=== PATIENT | male | born 1950 | race Caucasian/White ===

== ENCOUNTER 2021-12-30 09:03 | Observation (INO) | payer OTHER ==
[~2021-12-30] VITALS: Ht 185.4 cm; Wt 83.0 kg
[2021-12-30 10:19] LABS: RED BLOOD COUNT 4.79 M/UL (4.20-5.50)
[2021-12-30 11:11] LABS: BUN/CREATININE RATIO 16 (0-10)
[2021-12-30] MEDS ORDERED: TEMAZEPAM30 MG PO (13:12)
[2021-12-30] MEDS ORDERED: BUDESONIDE0.5 MG/2 M INH (13:12)
[2021-12-30] MEDS ORDERED: LORAZEPAM0.5 MG PO (13:12)
[2021-12-30] MEDS ORDERED: NEURONTIN100 MG PO (13:13)
[2021-12-30] MEDS ORDERED: BETHANECHOL CHL25 MG PO (13:13)
[2021-12-30] MEDS ORDERED: SOTALOL80 MG PO (13:14)
[2021-12-30] MEDS ORDERED: ELIQUIS5 MG PO (13:14)
[2021-12-30] MEDS ORDERED: FLOMAX 0.4 MG0.4 MG PO (13:14)
[2021-12-30] MEDS ORDERED: REPATHA SY140 MG/1 M SQ (13:14)
[2021-12-30] MEDS ORDERED: OXYCODONE HCL10 MG PO (13:15)
[2021-12-30] MEDS ORDERED: IPRAT-ALBUT 0.5-3 ML INH (13:15)
[2021-12-30] MEDS ORDERED: MULTIVITAMIN1 EACH PO (13:16)
[2021-12-30] MEDS ORDERED: FOLIC ACID0.4 MG PO (13:16)
[2021-12-30] MEDS ORDERED: IRON325 M1 PO (13:16)
[2021-12-30] MEDS ORDERED: KEYTRUDA100 MG/4 M IV (13:16)
[2021-12-30] MEDS ORDERED: ZINC50 M1 PO (13:17)
[2021-12-30] MEDS ORDERED: VITAMIN B-12500 MCG PO (13:17)
[2021-12-30] MEDS ORDERED: VITAMIN B-6100 MG PO (13:17)
[2021-12-30] MEDS ORDERED: VITAMIN D3125 MCG PO (13:18)
[2021-12-30] MEDS ORDERED: VITAMIN C1000 MG PO (13:18)
[2021-12-30] MEDS ORDERED: AZITHROMYCIN250 MG PO (13:19)
[2021-12-31] MEDS ORDERED: DECADRON6 MG PO (11:50)
[2021-12-31] MEDS ORDERED: LEVOFLOXACIN750 MG PO (11:50)
[2021-12-31 11:59] LABS: HEMOGLOBIN 10.9 gm/dl (14.0-17.5); RED BLOOD COUNT 4.41 M/UL (4.20-5.50); WHITE BLOOD COUNT 7.7 K/UL (4.5-11.0)
[2021-12-31 12:25] LABS: BUN/CREATININE RATIO 18 (0-10)
== END 2021-12-31 14:44 | disposition home or self-care (01) ==
LOC: ER1 09:03 → CDU 12:16 → M/S 12:16
PROVIDERS: Emergency Medicine; ADMIT Internal Medicine
DX: U07.1 COVID-19 (principal); J12.82 Pneumonia due to coronavirus disease 2019; N39.0 Urinary tract infection, site not specified; J44.9 Chronic obstructive pulmonary disease, unspecified; I48.91 Unspecified atrial fibrillation; Z66 Do not resuscitate; I10 Essential (primary) hypertension; C34.90 Malignant neoplasm of unspecified part of unspecified bronchus or lung; C67.9 Malignant neoplasm of bladder, unspecified; Z79.01 Long term (current) use of anticoagulants; Z79.899 Other long term (current) drug therapy; Z87.891 Personal history of nicotine dependence; Z88.8 Allergy status to other drugs, medicaments and biological substances
CPT/HCPCS: 0240U; 36415; 36600; 51702; 71045; 80048; 80053; 81001; 82550; 82553; 82728; 82803; 83605; 83735; 83874; 83880; 84443; 84484; 85025; 85379; 86140; 87040; 87086; 93005; 94640; 94664; 94760; 96374; 96375; 96376; 99285; G0378; J0696; J1100; J1956; J2543; J7070; Q9967